=== PATIENT | male | born 1980 ===

== ENCOUNTER 2021-07-07 15:00 | Emergency (ER) | payer SELFPAY ==
[~2021-07-07] VITALS: Ht 172.7 cm; Wt 77.1 kg
== END 2021-07-07 20:30 | disposition home or self-care (01) ==
LOC: ER 15:00
DX: S80.212A Abrasion, left knee, initial encounter (principal); F19.10 Other psychoactive substance abuse, uncomplicated; Z91.030 Bee allergy status; W19.XXXA Unspecified fall, initial encounter
CPT/HCPCS: 73562-LT; 99283-25